=== PATIENT | male | born 1980 | race Caucasian/White ===

== ENCOUNTER 2017-03-12 09:33 | Observation (INO) | payer SELFPAY ==
[2017-03-12 09:33] VITALS: BMI 29.8
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
[2017-03-12 12:18] VITALS: RESP 18
[2017-03-12 13:03] LABS: BASO # 0.1 K/uL (0.0-0.2); BASO % 0.7 % (0.0-2.0); EOS % 0.5 % (0.0-4.0); HEMATOCRIT 40.8 % (35.0-51.0); LYMPH # 1.7 K/uL (1.0-4.3); LYMPH % 16.9 % (20.0-40.0); MEAN CELL VOLUME 86.1 fl (80.0-94.0); MEAN CORPUSCULAR HGB CONC 34.9 g/dL (33.0-37.0); MEAN PLATELET VOLUME 10.4 fl (7.2-11.7); MONO # 0.8 K/uL (0.0-0.8); MONO % 7.9 % (0.0-10.0); NEUT # 7.3 K/uL (1.8-7.0); NRBC % 0.1 % (0.0-0.0); RED CELL DISTRIBUTION WIDTH 13.3 % (11.5-14.5); WHITE BLOOD COUNT 9.8 K/uL (4.8-10.8)
[2017-03-12 13:07] LABS: ALCOHOL SERUM < 10 mg/dl (0-10); BLOOD UREA NITROGEN 9 mg/dl (9-20); CALCIUM 9.3 mg/dL (8.4-10.2); CARBON DIOXIDE 25 mmol/L (22-30); CHLORIDE 103 mmol/L (98-107); GFR AFRICAN-AMERICAN > 60; GLUCOSE,RANDOM 104 mg/dL (75-110); SODIUM 139 mmol/l (132-148)
[2017-03-12 13:37] LABS: POTASSIUM 3.5 MMOL/L (3.6-5.0)
[2017-03-12 16:55] VITALS: O2SAT 99
[2017-03-12 16:55] LABS: RBC URINE 2 /hpf (0-3); URINE BACTERIA RARE (<OCC); URINE BILIRUBIN NEGATIVE (NEGATIVE); URINE BLOOD NEGATIVE (NEGATIVE); URINE CALCIUM OXALATE CRYSTALS RARE /hpf (<OCC); URINE COLOR YELLOW (YELLOW); URINE GLUCOSE (UA) NEG (Normal); URINE KETONE NEGATIVE (NEGATIVE); URINE LEUKOCYTE ESTERASE NEG Leu/uL (Negative); URINE PROTEIN NEGATIVE (NEGATIVE); WBC URINE 5 /hpf (0-5)
[2017-03-12 17:04] VITALS: BP 134/83; PULSE 79; TEMP 98.7
== END 2017-03-12 17:49 | disposition home or self-care (01) ==
LOC: H.ER 09:33 → H.EROBSV 10:56
PROVIDERS: ADMIT Emergency Medicine; ATTEND Emergency Medicine
DX: F19.10 Other psychoactive substance abuse, uncomplicated (principal); Z78.1 Physical restraint status; F17.200 Nicotine dependence, unspecified, uncomplicated; I10 Essential (primary) hypertension; Y04.0XXA Assault by unarmed brawl or fight, initial encounter
CPT/HCPCS: 36415; 80048; 81003; 85025; 96372; 99285; G0378; G0480; J2060